=== PATIENT | female | born 1990 | race Caucasian/White ===

== ENCOUNTER 2018-10-06 12:40 | Emergency (ER) | payer BC ==
[2018-10-06 13:26] VITALS: BP 106/67
--- NOTE | 2018-10-06 14:22 | UC ---
Headache HPI - HPI Summary HPI Summary: pt is c/o a 3 days hx of L occipital headaches. describes as a sharp/stab/pulsing sensations that occur at random and lasts 4-5 seconds. occurs several times daily. no associated injury, fever, nausea, focal numb/weakness or changes in vision/ speech. no photo or phonophobia. sometimes her jaw pops and unsure if related. took 2 otc aleve yesterday with no relief. - History Of Current Complaint Chief Complaint: UCHeadache Stated Complaint: HEADACHE X3 DAYS Time Seen by Provider: 10/06/18 13:49 Hx Obtained From: Patient Hx Last Menstrual Period: 09/16/18 Pain Intensity: 4 Aggravating Factor(s): Nothing Allevating Factor(s): Nothing Associated Signs And Symptoms: Positive: Other (Noted In Comments) - nasal congestion(chronic and unchanged).. Negative: Nausea, Vomiting, Neck Pain - Risk Factors SAH Risk Factors: Negative Meningitis Risk Factors: Negative SDH Risk Factors: Negative Temporal Arteritis Risk Factors: Female - Allergies/Home Medications Allergies/Adverse Reactions: Allergies Allergy/AdvReac Type Severity Reaction Status Date / Time sulfamethoxazole Allergy Hives Verified 10/06/18 13:23 [From Bactrim] trimethoprim [From Bactrim] Allergy Hives Verified 10/06/18 13:23 PMH/Surg Hx/FS Hx/Imm Hx Previously Healthy: Yes - Surgical History Surgical History: Yes Surgery Procedure, Year, and Place: 2015 - Family History Known Family History: Positive: Other - No hx migraines or cerebral aneurysms - Social History Alcohol Use: None Substance Use Type: None Smoking Status (MU): Never Smoked Tobacco - Immunization History Vaccination Up to Date: Yes Review of Systems All Other Systems Reviewed And Are Negative: Yes Constitutional: Positive: Negative Skin: Positive: Negative Eyes: Positive: Negative ENT: Positive: Nasal Discharge Respiratory: Positive: Negative Cardiovascular: Positive: Negative Gastrointestinal: Positive: Negative Genitourinary: Positive: Negative Motor: Positive: Negative Neurovascular: Positive: Negative Musculoskeletal: Positive: Negative Neurological: Positive: Headache Psychological: Positive: Negative Is Patient Immunocompromised?: No Physical Exam Triage Information Reviewed: Yes Appearance: Well-Appearing Vital Signs: Initial Vital Signs Temp 97.5 F 10/06/18 13:21 Pulse 74 10/06/18 13:21 Resp 16 10/06/18 13:21 BP 106/67 10/06/18 13:21 Pulse Ox 100 10/06/18 13:21 Vital Signs Reviewed: Yes Eyes: Positive: Conjunctiva Clear, Other: - PERRL, EOMI. No temporal cords or tenderness. ENT: Positive: Pharynx normal, Nasal congestion, TMs normal, Other - L TMJ pops with rom.. Negative: Nasal drainage Neck: Positive: Supple, Nontender, No Lymphadenopathy, Other: - No carotid bruits. Negative: Nuchal Rigidity Respiratory: Positive: Lungs clear, Normal breath sounds Cardiovascular: Positive: RRR, No Murmur Abdomen Description: Positive: Nontender, No Organomegaly, Soft. Negative: Distended, Guarding Bowel Sounds: Positive: Present Musculoskeletal: Positive: ROM Intact Neurological: Positive: Other: - A&Ox3, CN 2-12 grossly intact, 5/5 strenght with 2+ reflexes and sensation intact x4. Steady gait. Negative rhomberg and pronator drift. Performs rapid alternating moves with ease. Percussion over facial nerves causes no pain. Psychological: Positive: Age Appropriate Behavior Skin Exam: Normal Diagnostics - Radiology No standard instances Radiology Interpretation Completed By: Radiologist - 1.UNREMARKABLE RADIOGRAPHS OF THE CERVICAL SPINE 2. Negative unenhanced head CT. Headache Course/Dx - Course Course Of Treatment: case d/w Dr. Chan who examine pt. we agreed on CT brain and c-spine xrays. - Differential Dx/Diagnosis Differential Diagnosis/HQI/PQRI: Other - CT brain and c-spine are unremarkable. neuro exam is reassuring. not typical for trigeminal neuralgia or cluster headaches. No intracranial lesions. not abrupt/worst to suggest bleed. Pain sounds c/w nerve pain. will trial routine NSAID and MM relaxor and close f/u pcp Provider Diagnosis: Headache Discharge - Sign-Out/Discharge Documenting (check all that apply): Patient Departure All imaging exams completed and their final reports reviewed: Yes - Discharge Plan Condition: Stable Disposition: HOME Prescriptions: Cyclobenzaprine TAB* [Flexeril 10 MG TAB*] 10 mg PO TID PRN #10 tab PRN Reason: Spasms Naproxen [Naprosyn 500 mg tab] 500 mg PO BID 5 Days #10 tablet Patient Education Materials: General Headache (ED) Referrals: Irais Martino [Primary Care Provider] - 3 Days - Billing Disposition and Condition Condition: STABLE Disposition: Home
== END 2018-10-06 15:55 | disposition home or self-care (01) ==
LOC: UCCORT 12:40
DX: R51 Headache (principal); Z88.1 Allergy status to other antibiotic agents
CPT/HCPCS: 70450; 72050; 99212; G0463